=== PATIENT | male | born 2000 | race Caucasian/White ===

== ENCOUNTER 2023-04-26 20:57 | Emergency (ER) | payer OTHER, SELFPAY ==
--- NOTE | ~2023-04-26 | XR_ITS ---
EXAMINATION: XR forearm LT 2V INDICATION: Post reduction TECHNIQUE: Two views of the left forearm are obtained. COMPARISON: 2116 hours FINDINGS: The previously described transverse mid shaft fractures of the left radius and ulna have be en partially reduced. The distal radius fragment remains dorsally displaced and overriding by 3 mm. T he distal ulnar fracture fragment is dorsally displaced and overriding by 2 mm. There is one cortical width of ulnar displacement of the distal radius fracture fragment. A triangular comminuted componen t is noted near the fracture site. Alignment at the wrist and elbow is normal. IMPRESSION: 1. Partially reduced transverse shaft fractures of the mid radius and ulna. Reviewed, dictated and finalized at location A.
--- NOTE | ~2023-04-26 | XR_ITS ---
Left Forearm AP and lateral views of the left forearm were performed. Clinical History: Injury Findings: There are transverse fractures of the mid radial and ulnar shafts, with radial and volar di splacement of both fractures.. Joint spaces are preserved. Soft tissues are unremarkable. Impression: Transverse, displaced fractures of the mid radial and ulnar shafts, as detailed above. Reviewed, dictated and finalized at location . Impression: Transverse, displaced fractures of the mid radial and ulnar shafts, as detailed above.
[2023-04-26 20:58] VITALS: BP 123/68; PULSE 98; RESP 18; TEMP 37.3; O2SAT 98
[2023-04-26 21:05] VITALS: BP 123/68; PULSE 75; RESP 20; O2SAT 100
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
[2023-04-26] MEDS: KETOROLAC 30 MG/ML VIAL (*BKC) IV PUSH (21:10)
[2023-04-26] MEDS: MORPHINE SULFATE (*CRX) 2 MG/ML INJ IV PUSH (21:30)
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
[2023-04-26 21:55] VITALS: BP 144/92; PULSE 95; RESP 20; O2SAT 96
[2023-04-26] MEDS: LORazepam INJ (*CRX) 2 MG/ML VIAL 1 MG IV PUSH (22:54)
[2023-04-26] MEDS: LIDOCAINE HCL 2% PF INJ 5 ML VIAL 8 ML INFILTRATE (22:55)
[2023-04-26 23:00] VITALS: BP 129/98; PULSE 98; RESP 18; O2SAT 100
[2023-04-26] MEDS: MORPHINE SULFATE (*CRX) 4 MG/ML INJ IV PUSH (23:00)
[2023-04-26 23:30] VITALS: PULSE 75
--- NOTE | 2023-04-26 23:30 | PC.NURSE ---
This RN assisted in positioning and holding Lt arm during reducing of fx. OCL sugartong splint applied immediately p reduced.
[2023-04-27 00:19] VITALS: BP 136/88; PULSE 100; RESP 18; TEMP 36.6; O2SAT 100
== END 2023-04-27 00:30 | disposition home or self-care (01) ==
PROVIDERS: Emergency Provider Emergency Medicine; PCP Family Medicine
DX: S52.002A Unspecified fracture of upper end of left ulna, initial encounter for closed fracture (principal); W18.39XA Other fall on same level, initial encounter
CPT/HCPCS: 25565; 73090; 96374; 96375; 96376; 99285; A4565; J1885; J2060; J2270